=== PATIENT | female | born 2000 | race Caucasian/White ===

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

== ENCOUNTER → 2019-01-18 | Outpatient (REF) | payer OTHER, MEDICAID ==
[2019-01-18 15:40] LABS: CHLAMYDIA DNA AMPLIFICATION NEGATIVE (NEGATIVE); GC DNA AMPLIFICATION NEGATIVE (NEGATIVE)
== END ==
LOC: M LAB REF 13:36
PROVIDERS: ATTEND Nurse Practitioner Pediatrics
DX: Z00.00 Encounter for general adult medical examination without abnormal findings (principal)

== ENCOUNTER → 2019-01-19 | Outpatient (REF) | payer OTHER | LOC: M LAB REF 16:29 | PROVIDERS: ATTEND Nurse Practitioner Family | DX: R30.0 Dysuria (principal) ==

== ENCOUNTER → 2019-03-17 | Outpatient (REF) | payer OTHER ==
[2019-03-17 19:47] LABS: APPEARANCE, URINE CLOUDY (CLEAR); BACTERIA, URINE AUTO NEGATIVE (NEGATIVE); BILIRUBIN, URINE AUTO NEGATIVE (NEGATIVE); BLOOD, URINE BLOOD NEGATIVE (NEGATIVE); COLOR, URINE YELLOW (YELLOW); GLUCOSE, URINE (UA) AUTO NEGATIVE (NEGATIVE); KETONE, URINE AUTO NEGATIVE (NEGATIVE); LEUKOCYTE ESTERASE, URINE AUTO 1+ (NEGATIVE); MUCUS, URINE SMALL (NEGATIVE); NITRITE, URINE AUTO NEGATIVE (NEGATIVE); PROTEIN, URINE AUTO NEGATIVE (NEGATIVE); RBC, URINE AUTO 2 /HPF (0-3); SPECIFIC GRAVITY URINE AUTO 1.028 (1.002-1.035); SQUAMOUS EPITHELIAL CELL UR AU 11 /HPF (0-6); UROBILINOGEN, URINE AUTO 0.2 mg/dL (0.0-2.0); WBC, URINE AUTO 57 /HPF (0-3)
[2019-03-18 17:06] LABS: CHLAMYDIA DNA AMPLIFICATION NEGATIVE (NEGATIVE); GC DNA AMPLIFICATION NEGATIVE (NEGATIVE)
== END ==
LOC: M LAB REF 17:02
PROVIDERS: ATTEND Physician Assistant
DX: Z11.3 Encounter for screening for infections with a predominantly sexual mode of transmission (principal); R30.0 Dysuria

== ENCOUNTER → 2019-08-19 | Outpatient (CLI) | payer OTHER ==
[2019-08-19 16:10] LABS: BASO # 0.1 10^3/uL (0.0-0.2); BASO % 0.9 % (0.0-1.0); EOS # 0.1 10^3/uL (0.0-0.5); EOS % 0.9 % (0.0-3.0); HEMATOCRIT 42.8 % (36.0-47.0); HEMOGLOBIN 13.8 g/dl (12.0-15.5); LYMPH # 2.2 10^3/uL (1.5-5.0); MEAN CORPUSCULAR HEMOGLOBIN 29.3 pg (27.0-33.0); MEAN CORPUSCULAR HGB CONC 32.2 g/dl (32.0-36.5); MEAN CORPUSCULAR VOLUME 90.9 fl (80.0-96.0); MONO # 0.9 10^3/uL (0.0-0.8); MONO % 11.3 % (0.0-5.0); NEUTROPHILS # 4.8 10^3/uL (1.5-8.5); NEUTROPHILS % 59.5 % (36.0-66.0); PLATELET COUNT, AUTOMATED 303 10^3/uL (150-450); RED BLOOD COUNT 4.71 10^6/uL (4.00-5.40)
[2019-08-19 16:22] LABS: ALBUMIN 4.4 GM/DL (3.2-5.2); ALT/SGPT 18 U/L (12-78); BILIRUBIN,TOTAL 0.4 MG/DL (0.2-1.0); BLOOD UREA NITROGEN 12 MG/DL (7-18); CALCIUM LEVEL 9.7 MG/DL (8.5-10.1); CARBON DIOXIDE LEVEL 28 MEQ/L (21-32); CHLORIDE LEVEL 108 MEQ/L (98-107); CREATININE FOR GFR 0.84 MG/DL (0.55-1.30); FREE T4 1.12 NG/DL (0.78-1.33); GLUCOSE, FASTING 80 MG/DL (70-100); IRON (FE) 151 UG/DL (50-170); PERCENT SATURATION 37.8 % (13.2-45.0); SODIUM LEVEL 139 MEQ/L (136-145); TOTAL IRON BINDING CAPACITY 400 UG/DL (250-450); TOTAL PROTEIN 7.9 GM/DL (6.4-8.2)
[2019-08-19 19:56] LABS: ERYTHROCYTE SEDIMENTATION RATE 5 mm/hr (0-20)
== END ==
LOC: M WUC 13:43
PROVIDERS: ATTEND Physician Assistant
DX: R11.0 Nausea (principal); R19.7 Diarrhea, unspecified; R53.83 Other fatigue

== ENCOUNTER 2020-11-18 00:28 | Emergency (ER) | payer OTHER ==
[~2020-11-18] VITALS: Ht 167.6 cm; Wt 58.6 kg
[2020-11-18 00:28] VITALS: BP 127/65
[2020-11-18] MEDS ORDERED: SETL1TAB PO (00:34)
[2020-11-18 04:08] LABS: BASO # 0.1 10^3/uL (0.0-0.2); BASO % 0.7 % (0.0-1.0); EOS # 0.2 10^3/uL (0.0-0.5); EOS % 1.7 % (0.0-3.0); HEMATOCRIT 33.9 % (36.0-47.0); HEMOGLOBIN 11.1 g/dl (12.0-15.5); LYMPH # 2.8 10^3/uL (1.5-5.0); LYMPH % 31.4 % (24.0-44.0); MEAN CORPUSCULAR HEMOGLOBIN 29.5 pg (27.0-33.0); MEAN CORPUSCULAR HGB CONC 32.7 g/dl (32.0-36.5); MEAN CORPUSCULAR VOLUME 90.2 fl (80.0-96.0); MONO # 0.9 10^3/uL (0.0-0.8); NEUTROPHILS % 55.9 % (36.0-66.0); PLATELET COUNT, AUTOMATED 256 10^3/uL (150-450); RED BLOOD COUNT 3.76 10^6/uL (4.00-5.40)
[2020-11-18 04:39] LABS: ALBUMIN 3.7 GM/DL (3.2-5.2); ALT/SGPT 13 U/L (12-78); BILIRUBIN,DIRECT < 0.1 MG/DL (0.0-0.2); BILIRUBIN,TOTAL 0.3 MG/DL (0.2-1.0); BLOOD UREA NITROGEN 7 MG/DL (7-18); CALCIUM LEVEL 9.1 MG/DL (8.5-10.1); CARBON DIOXIDE LEVEL 24 MEQ/L (21-32); CHLORIDE LEVEL 109 MEQ/L (98-107); CREATININE FOR GFR 0.65 MG/DL (0.55-1.30); GLUCOSE, FASTING 80 MG/DL (70-100); LIPASE 66 U/L (73-393); POTASSIUM SERUM 4.1 MEQ/L (3.5-5.1); SODIUM LEVEL 141 MEQ/L (136-145); TOTAL PROTEIN 6.7 GM/DL (6.4-8.2)
== END 2020-11-18 06:30 | disposition left against medical advice (07) ==
LOC: M ED 00:28
DX: R10.2 Pelvic and perineal pain (principal); N93.9 Abnormal uterine and vaginal bleeding, unspecified; Z79.3 Long term (current) use of hormonal contraceptives

== ENCOUNTER 2022-01-21 22:22 | Emergency (ER) | payer OTHER ==
[~2022-01-21] VITALS: Ht 170.2 cm; Wt 51.4 kg
[~2022-01-21 22:22] MED LIST changes: +SETL1TAB PO
[2022-01-21 22:23] VITALS: BP 153/78
[2022-01-21 23:32] LABS: HEMATOCRIT 38.6 % (36.0-47.0); MEAN CORPUSCULAR HEMOGLOBIN 30.4 pg (27.0-33.0); MEAN CORPUSCULAR HGB CONC 33.7 g/dl (32.0-36.5); MEAN CORPUSCULAR VOLUME 90.2 fl (80.0-96.0); PLATELET COUNT, AUTOMATED 283 10^3/uL (150-450); RED BLOOD COUNT 4.28 10^6/uL (4.00-5.40); WHITE BLOOD COUNT 11.7 10^3/uL (4.0-10.0)
[2022-01-21 23:47] LABS: HCG, SERUM QUALITATIVE NEGATIVE (NEGATIVE)
[2022-01-21 23:54] LABS: ETHYL ALCOHOL (ETHANOL) 0.003 % (0.000-0.010)
[2022-01-21 23:56] LABS: ACETAMINOPHEN LEVEL < 2.0 UG/ML (10.0-20.0); ALBUMIN 4.7 G/DL (3.2-5.2); ALKALINE PHOSPHATASE 42 U/L (46-116); ALT/SGPT 11 U/L (7.0-40); AST/SGOT 10 U/L (<34); BILIRUBIN,DIRECT 0.2 MG/DL (<0.4); BILIRUBIN,TOTAL 0.4 MG/DL (0.3-1.2); BLOOD UREA NITROGEN 10 MG/DL (9-23); CALCIUM LEVEL 9.9 MG/DL (8.5-10.1); CARBON DIOXIDE LEVEL 23 MMOL/L (20-31); CHLORIDE LEVEL 106 MMOL/L (98-107); CREATININE FOR GFR 0.67 MG/DL (0.55-1.30); GLOMERULAR FILTRATION RATE > 60.0 (>60); GLUCOSE, FASTING 93 MG/DL (60-100); POTASSIUM SERUM 4.1 MMOL/L (3.5-5.1); SALICYLATE LEVEL < 3.0 MG/DL (<30); SODIUM LEVEL 140 MMOL/L (136-145); TOTAL PROTEIN 7.6 G/DL (5.7-8.2)
[2022-01-21 23:58] LABS: THYROID STIMULATING HORMONE 4.788 uIU/ML (0.55-4.78)
[2022-01-22 00:08] LABS: RSV AMPLIFICATION NEGATIVE (NEGATIVE)
[2022-01-22 00:14] LABS: AMPHETAMINES LEVEL URINE NEGATIVE (NEGATIVE); BARBITURATES URINE NEGATIVE (NEGATIVE); BENZODIAZEPINES URINE NEGATIVE (NEGATIVE)
[2022-01-22 00:15] LABS: COCAINE METABOLITE URINE NEGATIVE (NEGATIVE); METHADONE URINE NEGATIVE (NEGATIVE); OPIATES URINE NEGATIVE (NEGATIVE); PHENCYCLIDINE URINE NEGATIVE (NEGATIVE)
[2022-01-22 00:17] LABS: CANNABINOIDS URINE POSITIVE (NEGATIVE)
== END 2022-01-22 02:13 | disposition home or self-care (01) ==
LOC: M ED 22:22
DX: F43.0 Acute stress reaction (principal); F50.9 Eating disorder, unspecified; R45.851 Suicidal ideations; F41.9 Anxiety disorder, unspecified; F17.200 Nicotine dependence, unspecified, uncomplicated

== ENCOUNTER 2023-09-09 22:58 | Inpatient (IN) | payer OTHER ==
[~2023-09-09] VITALS: Ht 170.2 cm; Wt 58.2 kg
[2023-09-09] MEDS ORDERED: SERTRALINE (23:14)
[2023-09-09 23:32] LABS: HEMATOCRIT 43.7 % (36.0-47.0); HEMOGLOBIN 14.6 g/dl (12.0-15.5); MEAN CORPUSCULAR HEMOGLOBIN 30.2 pg (27.0-33.0); MEAN CORPUSCULAR HGB CONC 33.4 g/dl (32.0-36.5); MEAN CORPUSCULAR VOLUME 90.3 fl (80.0-96.0); PLATELET COUNT, AUTOMATED 290 10^3/uL (150-450); RED BLOOD COUNT 4.84 10^6/uL (4.00-5.40); WHITE BLOOD COUNT 15.9 10^3/uL (4.0-10.0)
[2023-09-09 23:56] LABS: AMPHETAMINES LEVEL URINE NEGATIVE (NEGATIVE); BARBITURATES URINE NEGATIVE (NEGATIVE); COCAINE METABOLITE URINE NEGATIVE (NEGATIVE); METHADONE URINE NEGATIVE (NEGATIVE); OPIATES URINE NEGATIVE (NEGATIVE); PHENCYCLIDINE URINE NEGATIVE (NEGATIVE)
[2023-09-09 23:58] LABS: BENZODIAZEPINES URINE POSITIVE (NEGATIVE); CANNABINOIDS URINE POSITIVE (NEGATIVE); ETHYL ALCOHOL (ETHANOL) < 0.003 % (0.000-0.010)
[2023-09-09 23:59] LABS: HCG, SERUM QUALITATIVE NEGATIVE (NEGATIVE)
[2023-09-10 00:02] LABS: ALBUMIN 4.6 G/DL (3.2-5.2); ALKALINE PHOSPHATASE 57 U/L (46-116); ALT/SGPT 16 U/L (7.0-40); AST/SGOT < 8 U/L (<34); BILIRUBIN,DIRECT 0.1 MG/DL (<0.4); BILIRUBIN,TOTAL 0.4 MG/DL (0.3-1.2); BLOOD UREA NITROGEN 13 MG/DL (9-23); CARBON DIOXIDE LEVEL 25 MMOL/L (20-31); CHLORIDE LEVEL 107 MMOL/L (98-107); CREATININE FOR GFR 0.81 MG/DL (0.55-1.30); GLOMERULAR FILTRATION RATE > 60.0 (>60); GLUCOSE, FASTING 85 MG/DL (60-100); POTASSIUM SERUM 4.2 MMOL/L (3.5-5.1); SALICYLATE LEVEL < 3.0 MG/DL (<30); SODIUM LEVEL 138 MMOL/L (136-145); THYROID STIMULATING HORMONE 2.385 uIU/ML (0.55-4.78); TOTAL PROTEIN 7.8 G/DL (5.7-8.2)
[2023-09-10] MEDS ORDERED: ZOLO100T PO (02:22)
[2023-09-10] MEDS ORDERED: HOME MED LIST COMPLETE! XX SCH (02:25)
[2023-09-10] MEDS ORDERED: SERTRALINE 100 MG TAB PO SCH (09:00)
[2023-09-10] MEDS ORDERED: LORazepam 2 MG TAB PO PRN (12:10)
[2023-09-10] MEDS ORDERED: IBUPROFEN 400MG TAB PO PRN (12:10)
[2023-09-10] MEDS ORDERED: ACETAMINOPHEN TAB 650MG DOSE (2X325MG) PO PRN (12:10)
[2023-09-10] MEDS ORDERED: MOM 30ML SUSPENSION UDC PO PRN (12:10)
[2023-09-10] MEDS ORDERED: MAALOX 30 ML SUSP *UDC PO PRN (12:10)
[2023-09-10] MEDS: SERTRALINE 100 MG TAB PO SCH (12:31)
[2023-09-10] MEDS: MULTIVITAMINS/MINERALS THERAP 1 TAB PO SCH (12:31)
[2023-09-10] MEDS: NICOTINE 21MG/24HR 1 EA TRANSDERMAL TD SCH (12:31)
[2023-09-10] MEDS: THIAMINE 100 MG TAB PO SCH (12:31)
[2023-09-10 16:20] VITALS: BP 130/60; TEMP 98; O2SAT 99
[2023-09-10 21:00] VITALS: BP 143/88; TEMP 98.1; O2SAT 98
[2023-09-10 21:41] VITALS: BP 143/88
[2023-09-10] MEDS: traZODone 50 MG TAB PO PRN (22:02)
[2023-09-11 06:00] VITALS: BP 122/78
[2023-09-11 06:22] VITALS: BP 122/78; TEMP 98; O2SAT 96
[2023-09-11] MEDS: FOLIC ACID 1MG TAB PO SCH (08:56)
[2023-09-11 14:00] VITALS: BP 140/73
[2023-09-11 18:34] VITALS: BP 140/73; TEMP 99.6
[2023-09-11 20:00] VITALS: BP 126/70
[2023-09-11] MEDS: diphenhydrAMINE 25MG CAP PO PRN (20:55)
[2023-09-12 04:00] VITALS: BP 128/70
[2023-09-12 06:16] VITALS: BP 128/70; TEMP 97.7
[2023-09-12] MEDS ORDERED: NICO21PAT TD (09:06)
[2023-09-12] MEDS ORDERED: TRAZ-252 PO (09:06)
== END 2023-09-12 11:38 | disposition home or self-care (01) | DRG 881 ==
LOC: M ED 22:58 → M ED INP 09-10 13:45 → M PSY 09-10 14:55
PROVIDERS: ADMIT Student in an Organized Health Care Education/Training Program; ATTEND Student in an Organized Health Care Education/Training Program
DX: F43.21 Adjustment disorder with depressed mood (principal); Z81.3 Family history of other psychoactive substance abuse and dependence; Z81.8 Family history of other mental and behavioral disorders; Z63.8 Other specified problems related to primary support group; Z87.891 Personal history of nicotine dependence; Z79.899 Other long term (current) drug therapy; Z56.0 Unemployment, unspecified; F60.3 Borderline personality disorder

== ENCOUNTER → 2023-09-30 | Outpatient (CLI) | payer OTHER ==
[~2023-09-30] MED LIST changes: +NICO21PAT TD; +SERTRALINE; +TRAZ-252 PO; +ZOLO100T PO
[2023-09-30 18:43] LABS: BASO # 0.1 10^3/uL (0.0-0.2); BASO % 0.7 % (0.0-1.0); EOS # 0.2 10^3/uL (0.0-0.5); EOS % 1.8 % (0.0-3.0); HEMOGLOBIN 14.5 g/dl (12.0-15.5); LYMPH # 2.5 10^3/uL (1.5-5.0); LYMPH % 23.1 % (24.0-44.0); MEAN CORPUSCULAR HEMOGLOBIN 30.5 pg (27.0-33.0); MEAN CORPUSCULAR HGB CONC 33.7 g/dl (32.0-36.5); MEAN CORPUSCULAR VOLUME 90.5 fl (80.0-96.0); MONO # 1.5 10^3/uL (0.0-0.8); MONO % 13.6 % (2.0-8.0); NEUTROPHILS # 6.6 10^3/uL (1.5-8.5); NEUTROPHILS % 60.3 % (36.0-66.0); PLATELET COUNT, AUTOMATED 297 10^3/uL (150-450); RED BLOOD COUNT 4.75 10^6/uL (4.00-5.40)
== END ==
LOC: M PLALAB 15:33
PROVIDERS: ATTEND Physician Assistant
DX: N92.6 Irregular menstruation, unspecified (principal); D72.829 Elevated white blood cell count, unspecified

== ENCOUNTER → 2023-10-01 | Outpatient (REF) | payer OTHER ==
[2023-10-02 12:36] LABS: Trichomonas vaginalis (AMP) NOT DETECTED (NEGATIVE)
[2023-10-02 13:00] LABS: GC DNA AMPLIFICATION NEGATIVE (NEGATIVE)
== END ==
LOC: M SFHCPLAZ 10:16
PROVIDERS: ATTEND Physician Assistant Medical
DX: Z20.2 Contact with and (suspected) exposure to infections with a predominantly sexual mode of transmission (principal)

== ENCOUNTER → 2023-10-02 | Outpatient (CLI) | payer OTHER ==
[2023-10-02 18:43] LABS: HIV 1&2 SCREEN NEGATIVE (NEGATIVE)
[2023-10-02 19:14] LABS: Trichomonas vaginalis (AMP) NOT DETECTED (NEGATIVE)
[2023-10-02 19:37] LABS: GC DNA AMPLIFICATION NEGATIVE (NEGATIVE)
[2023-10-06 14:02] LABS: HSV 1 IGG TYPE SPECIFIC < 0.90 index (<0.90); HSV 2 IGG TYPE SPECIFIC < 0.90 index (<0.90)
== END ==
LOC: M PLALAB 14:35
PROVIDERS: ATTEND Physician Assistant Medical
DX: Z20.2 Contact with and (suspected) exposure to infections with a predominantly sexual mode of transmission (principal)

== ENCOUNTER → 2023-10-03 | Outpatient (CLI) | payer OTHER | LOC: M WHC 12:33 | PROVIDERS: ATTEND Physician Assistant | DX: O26.851 Spotting complicating pregnancy, first trimester (principal); N92.6 Irregular menstruation, unspecified; Z30.431 Encounter for routine checking of intrauterine contraceptive device; T83.32XA Displacement of intrauterine contraceptive device, initial encounter; Z3A.01 Less than 8 weeks gestation of pregnancy; Y83.1 Surgical operation with implant of artificial internal device as the cause of abnormal reaction of the patient, or of later complication, without mention of misadventure at the time of the procedure; O26.891 Other specified pregnancy related conditions, first trimester; O9A.211 Injury, poisoning and certain other consequences of external causes complicating pregnancy, first trimester ==

== ENCOUNTER → 2023-10-22 | Outpatient (REF) | payer OTHER | LOC: M PLALAB 13:38 | PROVIDERS: ATTEND Obstetrics & Gynecology | DX: Z34.81 Encounter for supervision of other normal pregnancy, first trimester (principal); Z53.9 Procedure and treatment not carried out, unspecified reason ==

== ENCOUNTER → 2023-10-22 | Outpatient (CLI) | payer OTHER, SELFPAY ==
[2023-10-22 18:21] LABS: HEMATOCRIT 42.1 % (36.0-47.0); MEAN CORPUSCULAR HEMOGLOBIN 30.4 pg (27.0-33.0); MEAN CORPUSCULAR HGB CONC 33.3 g/dl (32.0-36.5); MEAN CORPUSCULAR VOLUME 91.3 fl (80.0-96.0); PLATELET COUNT, AUTOMATED 296 10^3/uL (150-450); RED BLOOD COUNT 4.61 10^6/uL (4.00-5.40); WHITE BLOOD COUNT 15.1 10^3/uL (4.0-10.0)
[2023-10-22 18:58] LABS: HIV 1&2 SCREEN NEGATIVE (NEGATIVE)
[2023-10-22 19:06] LABS: HEPATITIS C VIRUS ABY INDEX < 0.02 INDEX (<0.8)
[2023-10-22 19:53] LABS: GC DNA AMPLIFICATION NEGATIVE (NEGATIVE)
== END ==
LOC: M PLALAB 14:41
PROVIDERS: ATTEND Obstetrics & Gynecology
DX: Z34.81 Encounter for supervision of other normal pregnancy, first trimester (principal)

== ENCOUNTER → 2024-01-12 | Outpatient (CLI) | payer MEDICAID ==
[~2024-01-12] MED LIST changes: -CYCL5TAB PO; +CYCL5TAB4 PO; +LIDOCAINE 2% 100MG/5ML SDV (FOR ANES.) As Ordered ONE; +propofoL 200 MG/20 ML VIAL As Ordered ONE
== END ==
LOC: M RAD 08:09
PROVIDERS: ATTEND Obstetrics & Gynecology
DX: Z34.92 Encounter for supervision of normal pregnancy, unspecified, second trimester (principal)

== ENCOUNTER → 2024-03-02 | Outpatient (CLI) | payer MEDICAID, OTHER ==
[~2024-03-02] MED LIST changes: -LIDOCAINE 2% 100MG/5ML SDV (FOR ANES.) As Ordered ONE; -propofoL 200 MG/20 ML VIAL As Ordered ONE
[2024-03-02 17:38] LABS: HEMATOCRIT 36.3 % (36.0-47.0); HEMOGLOBIN 12.2 g/dl (12.0-15.5); MEAN CORPUSCULAR HEMOGLOBIN 30.3 pg (27.0-33.0); MEAN CORPUSCULAR HGB CONC 33.6 g/dl (32.0-36.5); MEAN CORPUSCULAR VOLUME 90.3 fl (80.0-96.0); PLATELET COUNT, AUTOMATED 294 10^3/uL (150-450); RED BLOOD COUNT 4.02 10^6/uL (4.00-5.40)
[2024-03-02 19:42] LABS: GLUCOSE CHALLENGE TEST 1 HOUR 159 MG/DL (LESS THAN 140)
[2024-03-02 20:12] LABS: HIV 1&2 SCREEN NEGATIVE (NEGATIVE)
[2024-03-02 20:20] LABS: HEPATITIS C VIRUS ABY INDEX < 0.02 INDEX (<0.8)
[2024-03-02 20:21] LABS: GC DNA AMPLIFICATION NEGATIVE (NEGATIVE)
== END ==
LOC: M PLALAB 13:13
PROVIDERS: ATTEND Specialist
DX: Z34.82 Encounter for supervision of other normal pregnancy, second trimester (principal)

== ENCOUNTER → 2024-04-06 | Outpatient (CLI) | payer OTHER | LOC: M LAB 07:58 | PROVIDERS: ATTEND Specialist | DX: O99.810 Abnormal glucose complicating pregnancy (principal) ==

== ENCOUNTER → 2024-04-28 | Outpatient (REF) | payer OTHER | LOC: M PLALAB 10:59 | PROVIDERS: ATTEND Nurse Practitioner Family | DX: Z34.93 Encounter for supervision of normal pregnancy, unspecified, third trimester (principal); Z3A.36 36 weeks gestation of pregnancy ==

== ENCOUNTER 2024-05-19 21:37 | Inpatient (IN) | payer OTHER ==
[~2024-05-19] VITALS: Ht 170.2 cm; Wt 84.4 kg
[2024-05-19] MEDS: LR 1,000 ML IV SCH (04:00)
[2024-05-19 21:55] VITALS: BP 128/72
[2024-05-19] MEDS ORDERED: LIDOCAINE 1% MDV 20ML VIAL INFIL PRN (22:30)
[2024-05-19] MEDS ORDERED: METHYLERGONOVINE MALEATE 0.2MG/ML 1ML VIAL IM PRN (22:30)
[2024-05-19] MEDS ORDERED: OXYTOCIN INJ 10UNITS/ML 1ML VIAL IM PRN (22:30)
[2024-05-19] MEDS ORDERED: OXYTOCIN DRIP 30 UNITS in IV 1 EA IV PRN (22:30)
[2024-05-19] MEDS ORDERED: CARBOPROST TROMETHAMINE 250 MCG/ML AMP IM PRN (22:30)
[2024-05-19 22:59] LABS: HEMATOCRIT 38.6 % (36.0-47.0); HEMOGLOBIN 12.6 g/dl (12.0-15.5); MEAN CORPUSCULAR HEMOGLOBIN 27.1 pg (27.0-33.0); MEAN CORPUSCULAR HGB CONC 32.6 g/dl (32.0-36.5); PLATELET COUNT, AUTOMATED 262 10^3/uL (150-450); RED BLOOD COUNT 4.65 10^6/uL (4.00-5.40); WHITE BLOOD COUNT 13.2 10^3/uL (4.0-10.0)
[2024-05-19 23:33] VITALS: BP 147/83
[2024-05-19] MEDS ORDERED: diphenhydrAMINE 50MG/ML VIAL IV PRN (23:35)
[2024-05-19] MEDS ORDERED: EPIDURAL/PCA KEYS XX PRN (23:35)
[2024-05-19] MEDS ORDERED: ePHEDrine SULFATE 25 MG/5 ML(5MG/ML) SYRINGE IVP PRN (23:35)
[2024-05-19] MEDS ORDERED: LR 500 ML IV PRN (23:35)
[2024-05-19] MEDS ORDERED: NALOXONE INJ 0.4MG/1ML VIAL IV PRN (23:35)
[2024-05-19 23:38] VITALS: BP 141/82
[2024-05-19] MEDS: FENTANYL/ROPIVACAINE/NACL BAG 100 ML EPIDURAL SCH (23:38)
[2024-05-19] MEDS: LACTATED RINGER'S 1000 ML IV STA (23:38)
[2024-05-19 23:45] VITALS: BP 162/81
[2024-05-19 23:48] VITALS: BP 162/93
[2024-05-19 23:53] VITALS: BP 160/77
[2024-05-20] VITALS (34 sets, daily range): BP systolic 113–164; BP diastolic 55–100; O2SAT 97–100
[2024-05-20 00:16] LABS: HIV 1&2 SCREEN NEGATIVE (NEGATIVE)
[2024-05-20 00:24] LABS: HEPATITIS C VIRUS ABY INDEX 0.02 INDEX (<0.8)
[2024-05-20] MEDS: OXYTOCIN DRIP 30 UNITS in IV 1 EA IV SCH (06:34)
[2024-05-20] MEDS: SERTRALINE 100 MG TAB PO SCH (08:14)
[2024-05-20] MEDS: PRENATAL VITAMINS CHEWABLE TABLET PO SCH (09:00)
[2024-05-20] MEDS: TRANEXAMIC ACID INJection 1,000 MG in NS 100 ML IV PRN (09:06)
[2024-05-20] MEDS: ONDANSETRON 4MG 2ML VIAL IV PRN (09:18)
[2024-05-20] MEDS ORDERED: METHYLERGONOVINE MALEATE 0.2 MG TAB PO PRN (09:50)
[2024-05-20] MEDS ORDERED: IBUPROFEN 600MG TAB PO PRN (09:50)
[2024-05-20] MEDS ORDERED: RHOGAM 300MCG (1500IU) INJ IM SCH (09:50)
[2024-05-20] MEDS ORDERED: DOCUSATE SODIUM 100MG CAPSULE PO PRN (09:50)
[2024-05-20] MEDS ORDERED: ACETAMINOPHEN 325 MG TAB PO PRN (09:50)
[2024-05-20] MEDS: ACETAMINOPHEN 500 MG TAB PO PRN (13:49)
[2024-05-20] MEDS: IBUPROFEN 800 MG TAB PO PRN (18:37)
[2024-05-20] MEDS: DIBUCAINE 1% OINTMENT 30GM TOP PRN (22:05)
[2024-05-21 06:09] VITALS: BP 119/66
[2024-05-22] MEDS ORDERED: MEASLES,MUMPS,RUBELLA VACCINE INJ (MMR-II) SC.IMMUN ONE (09:00)
== END 2024-05-21 13:45 | disposition home or self-care (01) | DRG 560 ==
LOC: M LDO 21:37 → M LDI 22:24 → M OBS 05-20 12:36
PROVIDERS: ADMIT Advanced Practice Midwife; ATTEND Advanced Practice Midwife
PROC: 10E0XZZ Delivery of Products of Conception, External Approach (ICD-10-PCS; principal; 2024-05-20)
PROC: 0KQM0ZZ Repair Perineum Muscle, Open Approach (ICD-10-PCS; 2024-05-20)
PROC: 10907ZC Drainage of Amniotic Fluid, Therapeutic from Products of Conception, Via Natural or Artificial Opening (ICD-10-PCS; 2024-05-20)
DX: O70.1 Second degree perineal laceration during delivery (principal); Z37.0 Single live birth; Z3A.39 39 weeks gestation of pregnancy; Z79.899 Other long term (current) drug therapy

== ENCOUNTER → 2024-11-19 | Outpatient (REF) | payer MEDICAID, OTHER ==
[2024-11-23 15:08] LABS: HPV APTIMA Not Detected (Not Detected)
== END ==
LOC: M SFHCWAGY 11:00
PROVIDERS: ATTEND Advanced Practice Midwife
DX: Z12.4 Encounter for screening for malignant neoplasm of cervix (principal); R87.615 Unsatisfactory cytologic smear of cervix

== ENCOUNTER → 2025-02-08 | Outpatient (REF) | payer OTHER | LOC: M LAB REF 11:47 | PROVIDERS: ATTEND Physician Assistant Medical | DX: B34.9 Viral infection, unspecified (principal) ==

== ENCOUNTER → 2025-02-08 | Outpatient (REF) | payer OTHER | LOC: M SFHCPLAZ 12:42 | PROVIDERS: ATTEND Family Medicine | DX: R09.89 Other specified symptoms and signs involving the circulatory and respiratory systems (principal) ==